=== PATIENT | male | born 1985 | race Two or more races ===

== ENCOUNTER 2024-11-29 19:12 | Emergency (ER) | payer MEDICAID, OTHER ==
[~2024-11-29] VITALS: Ht 185.4 cm; Wt 97.5 kg
[2024-11-29 20:40] LABS: BASOPHILS % (AUTO) 0.3 % (0.0-2.0); EOSINOPHILS # (AUTO) 0.1 K/uL (0.0-0.7); EOSINOPHILS % (AUTO) 1.1 % (0.0-6.0); HEMATOCRIT 44 % (39-51); LYMPHOCYTES # (AUTO) 2.8 K/uL (0.8-4.8); LYMPHOCYTES % (AUTO) 39.1 % (20.0-44.0); MEAN CORPUSCULAR HEMOGLOBIN 24 PG (26.0-33.0); MEAN CORPUSCULAR HGB CONC 32 g/dl (31.0-36.0); MEAN CORPUSCULAR VOLUME 75 fL (80-96); MONOCYTES # (AUTO) 0.9 K/uL (0.1-1.30); NEUTROPHILS # (AUTO) 3.4 K/uL (1.8-8.9); NEUTROPHILS % (AUTO) 47.5 % (43.0-81.0); PLATELET COUNT (AUTO) 310 K/uL (150-450); RED CELL DISTRIBUTION WIDTH 15.4 % (11.5-15.0); WHITE BLOOD COUNT (AUTO) 7.2 K/uL (4.3-11.0)
[2024-11-29 20:46] LABS: CALCIUM, SERUM 9.4 mg/dL (8.5-10.1); CARBON DIOXIDE 30 mmol/L (21-32); CHLORIDE 106 mmol/L (98-107); CREATININE 1.1 mg/dL (0.6-1.3); GLUCOSE 98 mg/dL (74-106); POTASSIUM 3.8 mmol/L (3.5-5.1); SODIUM SERUM 146 mmol/L (136-145); UREA NITROGEN, BLOOD 5 mg/dL (7-18)
[2024-11-29 20:53] LABS: ALANINE AMINOTRANSFERASE 20 U/L (12-78); ALKALINE PHOSPHATASE 64 U/L (46-116); ASPARTATE AMINOTRANSFERASE 24 U/L (15-37); BILIRUBIN,DIRECT 0.1 mg/dL (0.0-0.2); BILIRUBIN,TOTAL 0.2 mg/dL (0.2-1.0); INR 1.06 (0.91-1.10); PARTIAL THROMBOPLASTIN TIME 24.7 SEC (24.3-34.3); PROTHROMBIN TIME 11.2 SECS (9.2-11.1); TOTAL PROTEIN, SERUM 9.2 g/dL (6.4-8.2)
[2024-11-29 20:54] LABS: ACETAMINOPHEN <10 ug/ml (10-30); SALICYLATE 0.8 mg/dL (2.8-20.0); SERUM AMMONIA 15 umol/L (11-32)
[2024-11-29 20:56] LABS: ALCOHOL, BLOOD 410 mg/dL (0-10)
[2024-11-29 21:06] LABS: AMPHETAMINE, URINE NEGATIVE (NEGATIVE); BARBITURATE, URINE NEGATIVE (NEGATIVE); BENZODIAZEPINE, URINE NEGATIVE (NEGATIVE); CANNABINOID, URINE NEGATIVE (NEGATIVE); COCCAINE, URINE NEGATIVE (NEGATIVE); OPIATE, URINE NEGATIVE (NEGATIVE); PHENCYCLIDINE SCREEN,URINE NEGATIVE (NEGATIVE)
[2024-11-30 00:34] VITALS: BP 135/90; TEMP 98.5; O2SAT 99
== END 2024-11-30 00:35 | disposition home or self-care (01) ==
LOC: ER 19:13
DX: F10.10 Alcohol abuse, uncomplicated (principal); I51.7 Cardiomegaly; R07.9 Chest pain, unspecified; R42 Dizziness and giddiness; Y90.8 Blood alcohol level of 240 mg/100 ml or more
CPT/HCPCS: 36415; 70450-TC; 71045-TC; 80048-TC; 80076-TC; 82140-TC; 82962-TC; 84443-TC; 84484-TC; 85025-TC; 85730-TC; G0480

== ENCOUNTER 2024-11-30 18:48 | Emergency (ER) | payer MEDICAID ==
[~2024-11-30] VITALS: Ht 185.4 cm; Wt 97.5 kg
[2024-11-30 19:00] VITALS: BP 120/70; TEMP 97.9; O2SAT 98
== END 2024-11-30 23:14 | disposition home or self-care (01) ==
LOC: ER 18:52
DX: F10.129 Alcohol abuse with intoxication, unspecified (principal); Y90.8 Blood alcohol level of 240 mg/100 ml or more
CPT/HCPCS: 36415; G0480